=== PATIENT | male | born 1970 | race Two or more races ===

== ENCOUNTER 2017-10-29 00:29 | Emergency (ER) | payer SELFPAY ==
[~2017-10-29] VITALS: Ht 167.6 cm; Wt 74.8 kg
[2017-10-29 00:38] VITALS: BP 130/82
[2017-10-29 01:34] LABS: Basophils # (auto) 0.1 uL; Basophils % (auto) 0.5 % (0.0-2.0); Eosinophils # (auto) 0.2 uL; Eosinophils % (auto) 1.5 % (0.0-7.0); Hematocrit 42.4 % (41.0-53.0); Hemoglobin 13.9 g/dL (13.5-17.5); Lymphocytes # (auto) 4.1 uL; Lymphocytes % (auto) 30.3 % (10.0-50.0); Mean Corpuscular Hemoglobin 29.3 pg (28.0-32.0); Mean Corpuscular Hgb Conc. 32.8 g/dL (32.0-36.0); Mean Corpuscular Volume 89.4 fL (80.0-100.0); Monocytes # (auto) 1.2 uL; Monocytes % (auto) 8.5 % (0.0-12.0); Neutrophils % (auto) 59.2 % (37.0-80.0); Platelet Count (auto) 284 10^3/uL (140-450); Red Blood Cells 4.75 10^6/uL (4.5-5.90); Red Cell Distribution Width 14.4 % (11.8-14.3); White Blood Cell 13.5 10^3/uL (4.4-10.8)
[2017-10-29 01:51] LABS: Albumin 3.3 g/dL (3.4-5.0); BUN/Creatinine Ratio 20.5; Calcium 8.2 mg/dL (8.5-10.1); Potassium 3.9 mmol/L (3.5-5.1)
[2017-10-29 01:53] LABS: Bilirubin, Total 0.2 mg/dL (0.2-1.0); Total Protein 6.9 g/dL (6.4-8.2)
== END 2017-10-29 01:40 | disposition left against medical advice (07) ==
LOC: EDBD 00:29 → ER 00:34
DX: M79.605 Pain in left leg (principal); Z53.21 Procedure and treatment not carried out due to patient leaving prior to being seen by health care provider
CPT/HCPCS: 36415; 80053; 85025